=== PATIENT | male | born 1970 | race Asian ===

== ENCOUNTER 2023-02-26 15:56 | Emergency (ER) | payer OTHER ==
[~2023-02-26] VITALS: Ht 167.6 cm; Wt 81.8 kg
[2023-02-26] MEDS ORDERED: METF-1211 PO (16:02)
[2023-02-26] MEDS ORDERED: GLIP10TA10 PO (16:02)
[2023-02-26 16:06] VITALS: BP 125/53; PULSE 100; RESP 18; TEMP 98.6
== END 2023-02-26 17:40 | disposition left against medical advice (07) ==
LOC: EMS 15:56
DX: M54.9 Dorsalgia, unspecified (principal); Z53.21 Procedure and treatment not carried out due to patient leaving prior to being seen by health care provider
CPT/HCPCS: 99281; Z7502